=== PATIENT | female | born 1980 | race Caucasian/White ===

== ENCOUNTER 2019-07-13 16:43 | Emergency (ER) | payer BC, MEDICAID ==
[~2019-07-13] VITALS: Ht 170.2 cm; Wt 86.0 kg
[2019-07-13 17:00] VITALS: BP 117/80
== END 2019-07-13 20:47 | disposition home or self-care (01) ==
LOC: EDSEX 16:44 → ER 16:44
DX: R60.0 Localized edema (principal); J45.909 Unspecified asthma, uncomplicated; E11.9 Type 2 diabetes mellitus without complications
CPT/HCPCS: 93971; 99284